=== PATIENT | female | born 1960 | race Caucasian/White ===

== ENCOUNTER 2017-03-23 21:06 | Emergency (ER) | payer OTHER ==
[~2017-03-23] VITALS: Ht 162.6 cm; Wt 60.3 kg
[~2017-03-23 21:06] MED LIST: AMT50 PO; BUPR150T47 PO; DIPH-416 PO; FLUO20CA35 PO; HYOS0.1271 PO; SUMA100T15 PO; TOPI100T20 PO
[2017-03-23 21:12] VITALS: TEMP 36.5; Ht 162.6 cm; Wt 60.3 kg
[2017-03-23] MEDS ORDERED: LEVO25TA PO (21:34)
[2017-03-23] MEDS ORDERED: NARA1TAB4 PO (21:34)
[2017-03-23] MEDS ORDERED: BUTA1CAP17 PO (21:34)
[2017-03-23] MEDS ORDERED: AMOXICILLIN/CLAVULANATE TAB 875 MG TAB PO ONE (21:45)
[2017-03-23] MEDS ORDERED: RABIES VACCINE (IMOVAX) HUMAN DIPL CELL 2.5 INTER.UNIT/ML SYR IM. ONE (21:45)
[2017-03-23] MEDS ORDERED: RABIES IMMUNE GLOBULIN (HUMAN) 150 INTER.UNIT/ML 2 ML VIAL IM. ONE (21:45)
[2017-03-23] MEDS ORDERED: DIPHTHERIA/TETANUS/PERTUSSIS 0.5 ML SYR/VIAL IM. ONE (21:45)
[2017-03-23] MEDS ORDERED: AMOX875T PO (22:01)
--- NOTE | 2017-03-23 22:03 | EMERGENCY ROOM VISIT NOTE ---
History First contact with patient: 21:16 Chief Complaint: BITE Stated Complaint: CAT BITE LEFT FOREARM History of Present Illness The patient is a 56 year old female who presents to the Emergency Room with complaints of a cat bite from a feral cat that occurred prior to arrival. The patient rescues feral cats. She noticed that this cat was appearing very ill and lethargic. She tried to catch the cat when it bit her on the left forearm. She is unsure of her last tetanus shot. She took the cat to the vet. It Was diagnosed with kidney failure. It was euthanized. It is being sent away for testing including rabies. The patient denies any significant pain from the wound. No fever or chills. Review of Systems 6 system review negative. Please see pertinent positives in the history of present illness section. Past Medical/Surgical History Hypothyroidism Social History Smoking Status: Never Smoker Current/Historical Medications Scheduled Amitriptyline Hcl (Elavil), 25 MG PO HS Amoxicillin & Pot Clavulanate (Augmentin 875-125 mg), 1 TAB PO BID Bupropion (Zyban), 150 MG PO HS Ypmucurkbn-Xtaydmryvwjgu-Voqaa (Fioricet), 1 CAP PO DIRECTED Fluoxetine (Prozac), 20 MG PO HS Levothyroxine Sodium (Synthroid), Unknown Dose PO DAILY Naratriptan Hcl (Amerge), Unknown Dose PO DIRECTED Scheduled PRN Hyoscyamine Sulfate (Hyoscyamine Sulfate), 1 TAB PO Q6H PRN for Diarrhea Allergies Coded Allergies: No Known Allergies (Unverified , 08/02/13) Physical Exam Vital Signs Date Time Temp Pulse Resp B/P (MAP) Pulse Ox O2 Delivery O2 Flow Rate FiO2 03/23/17 22:31 72 18 138/86 100 Room Air 03/23/17 21:12 36.5 64 18 147/94 99 Room Air Physical Exam VITALS: Vitals are noted on the nurse's note and reviewed by myself. Vital signs stable. GENERAL: 56-year-old female, in no acute distress, nondiaphoretic, well- developed well-nourished. SKIN: 2 puncture wounds are noted on the volar aspect of the left forearm. Mild erythema around the area. No erythematous streaking up the arm. No active bleeding.. HEAD: Normocephalic atraumatic. MUSCULOSKELETAL: Full flexion and extension of the left wrist. Strength 5/5 throughout. NEURO: Patient was alert and oriented to person place and time. Normal sensation to touch. No focal neurological deficits. Medical Decision & Procedures Medications Administered Medications (Trade) Dose Ordered Sig/Hever Route Start Time Stop Time Status Last Admin Dose Admin Amoxicillin/ Clavulanate Potassium (Augmentin Tab) 875 mg NOW ONCE PO 03/23/17 21:45 03/23/17 21:46 DC 03/23/17 21:58 875 MG Rabies Vaccine Human Diploid Cell (Imovax Rabies) 2.5 interunit ONCE ONCE IM. 03/23/17 21:45 03/23/17 21:46 DC 03/23/17 22:01 2.5 INTERUNIT Rabies Immune Globulin (Imogam Rabies Inj) 1,200 interunit ONCE ONCE IM. 03/23/17 21:45 03/23/17 21:46 DC 03/23/17 22:03 1,200 INTERUNIT Diphtheria/ Pertussis/Tetanus Vacc (Adacel Inj) 0.5 ml ONCE ONCE IM. 03/23/17 21:45 03/23/17 21:46 DC 03/23/17 22:00 0.5 ML ED Course The patient was seen and examined She was given 1 dose of Augmentin The case was discussed with [facility]. They informed me that the results of the rabies testing on the animal will likely be back in 3 days. The patient was given the rabies immunoglobulin She was also given RabAvert vaccine She was given an Adacel vaccine She was given 1 dose of Augmentin The wound was thoroughly cleansed. Approximately 1 mL of the rabies immunoglobulin was injected into the wound. It was dressed with bacitracin and a Band-Aid. Medical Decision Differential diagnosis Bite, wound infection, rabies exposure This patient is an unfortunate 56-year-old female that was bitten by a feral cat that appeared ill. The cat was euthanized and will be sent off for rabies testing. The testing will not be back for approximately 72 hours. For this reason, the patient was given the rabies immunoglobulin and the first rabies vaccine. She was also started on Augmentin. The wounds were thoroughly cleansed. I instructed her to call [facility] prior to returning to the emergency department for her next vaccine. If the testing is negative, she does not need any further vaccines. She was instructed to finish the entire course of antibiotics and wash the wound daily with soap and water. Impression Primary Impression: Cat bite Departure Information Dispostion Home / Self-Care Condition GOOD Prescriptions Amoxicillin & Pot Clavulanate (Augmentin 875-125 mg) 1 Tab Tab 1 TAB PO BID for 5 Days, #10 TAB Prov: Megan Snyder PA-C 03/23/17 Referrals Jennifer Addison M.D. (PCP) Patient Instructions ED Bite Cat, [facility], Rabies Vaccine suspension for injection Additional Instructions You had been treated in the emergency department for a cat bite. Please wash the wound daily with soap and water. Apply bacitracin for the first 2 days. Please watch for signs of infection such as redness, swelling, red streaking up the arm, significant pain or fever Please contact [facility] prior to returning to the emergency department for your next vaccination Today is day 0. Return to the ER on days 3, 7 and 14 for subsequent vaccinations.
[2017-03-23 22:31] VITALS: BP 138/86; PULSE 72; O2SAT 100
== END 2017-03-23 22:42 | disposition home or self-care (01) ==
LOC: C.EDB 21:09 → C.EDD 22:42
DX: S51.852A Open bite of left forearm, initial encounter (principal); W55.01XA Bitten by cat, initial encounter; Z23 Encounter for immunization; Z20.3 Contact with and (suspected) exposure to rabies; E03.9 Hypothyroidism, unspecified; Z79.899 Other long term (current) drug therapy

== ENCOUNTER → 2017-04-28 | Outpatient (CLI) | payer OTHER ==
[~2017-04-28] MED LIST changes: +BUTA1CAP17 PO; -DIPH-416 PO; +LEVO25TA PO; +NARA1TAB4 PO; -SUMA100T15 PO; -TOPI100T20 PO
[2017-04-28 13:29] LABS: BLOOD UREA NITROGEN 5 mg/dl (7-18); BUN/CREATININE RATIO 8.1 (10-20); CALCIUM 8.5 mg/dl (8.5-10.1); CARBON DIOXIDE 31 mmol/L (21-32); CHLORIDE 103 mmol/L (98-107); CREATININE 0.64 mg/dl (0.60-1.20); GLUCOSE 66 mg/dl (70-99); POTASSIUM 3.8 mmol/L (3.5-5.1); SODIUM 137 mmol/L (136-145)
== END | disposition home or self-care (01) ==
LOC: C.LABPVFM 08:35
PROVIDERS: ATTEND Family Medicine
DX: E03.9 Hypothyroidism, unspecified (principal); E55.9 Vitamin D deficiency, unspecified

== ENCOUNTER → 2017-09-04 | Outpatient (CLI) | payer OTHER ==
--- NOTE | 2017-09-05 12:52 | MAMMOGRAPHY REPORT ---
BILATERAL DIGITAL SCREENING MAMMOGRAM TOMOSYNTHESIS WITH CAD: 09/04/2017 CLINICAL HISTORY: Routine screening. Patient has no complaints. TECHNIQUE: Breast tomosynthesis in addition to standard 2D mammography was performed. Current study was also evaluated with a Computer Aided Detection (CAD) system. COMPARISON: Comparison is made to exams dated: 08/28/2016 mammogram, 08/08/2015 mammogram, 07/29/2014 mammogram, 07/31/2011 mammogram, 05/30/2010 mammogram - [facility], and 05/04/2009. BREAST COMPOSITION: The tissue of both breasts is heterogeneously dense, which may obscure small mas ses. FINDINGS: No suspicious masses, calcifications, or areas of architectural distortion are noted in ei ther breast. There has been no significant interval change compared to prior exams. IMPRESSION: ACR BI-RADS CATEGORY 1: NEGATIVE There is no mammographic evidence of malignancy. A 1 year screening mammogram is recommended. The pa tient will receive written notification of the results. Approximately 10% of breast cancers are not detected with mammography. A negative mammographic report should not delay biopsy if a clinically suggestive mass is present. Lyndsey Delong M.D. ah/:09/04/2017 14:50:04 Presser Cotton Ginning: Tabatha KENNEDY(Michelle)(Mohinder), [facility] letter sent: Normal 1/2 BI-RADS Code: ACR BI-RADS Category 1: Negative
== END | disposition home or self-care (01) ==
LOC: C.MAMM 09:14
PROVIDERS: ATTEND Family Medicine
DX: Z12.31 Encounter for screening mammogram for malignant neoplasm of breast (principal)

== ENCOUNTER → 2017-09-25 | Outpatient (CLI) | payer OTHER | END | disposition home or self-care (01) | LOC: C.LABPVFM 09:05 | PROVIDERS: ATTEND Nurse Practitioner | DX: N89.8 Other specified noninflammatory disorders of vagina (principal) ==

== ENCOUNTER → 2017-12-25 | Outpatient (CLI) | payer OTHER | END | disposition home or self-care (01) | LOC: C.LABPVFM 10:17 | PROVIDERS: ATTEND Nurse Practitioner | DX: N89.8 Other specified noninflammatory disorders of vagina (principal); E03.9 Hypothyroidism, unspecified ==

== ENCOUNTER → 2018-03-30 | Outpatient (CLI) | payer OTHER ==
--- NOTE | 2018-03-30 12:30 | DIAGNOSTIC IMAGING REPORT ---
L-SPINE MIN 4 VIEWS ROUTINE, THORACIC SPINE 3 VIEWS ROUTINE HISTORY: 57 years-old Female Paresthesias acute bilateral lower extremity numbness COMPARISON: CT abdomen and pelvis 08/21/2010 TECHNIQUE: 5 views of the lumbar spine with 3 views of the thoracic spine FINDINGS: LUMBAR: 5 nonrib-bearing lumbar type vertebral segments. No spondylolysis or spondylolisthesis. Mild intervertebral disc space narrowing with spondylitic spurring at 2-L3. No acute fracture, subluxation or other degenerative changes identified. There is straightening of the normal lumbar lordosis. Moderate volume of formed colonic stool seen about the right hemicolon. Mild atherosclerosis of the abdominal aorta. THORACIC: T1 is not completely imaged on the AP view. There are 12 rib-bearing thoracic-type vertebral segments. No acute fracture or subluxation. Mild convex right curvature of the midthoracic spine may be positional. Mild multilevel spondylitic spurring with minimal intervertebral disc space narrowing. No acute fracture or subluxation. Degenerative changes about the cervical spine noted. Imaged lung tanner appear clear. IMPRESSION: 1. No acute fracture or subluxation of the thoracic or lumbar spine. 2. Mild degenerative changes as above. The above report was generated using voice recognition software. It may contain grammatical, syntax or spelling errors. Electronically signed by: Sharif Hu M.D. 03/30/2018 12:28 PM Dictated Date/Time: 03/30/2018 12:22 PM
--- NOTE | 2018-03-30 13:15 | DIAGNOSTIC IMAGING REPORT ---
CERVICAL SPINE 2 OR 3 VIEWS CLINICAL HISTORY: Paresthesias. COMPARISON STUDY: No previous studies for comparison. FINDINGS: There is slight retrolisthesis of C4 on C5. Straightening of the normal cervical lordosis is noted. No fracture or suspicious lesion. There is moderate multilevel disc space narrowing at C4-5, C5-C6, C6-C7 and C7-T1. There is mild multilevel facet arthrosis. IMPRESSION: 1. No acute cervical spine fracture or subluxation. 2. Moderate to severe degenerative disc disease at C4-C5 with moderate disc space narrowing at numerous additional levels. 3. Mild multilevel facet arthrosis. Electronically signed by: Pedrito Peña M.D. 03/30/2018 1:14 PM Dictated Date/Time: 03/30/2018 1:08 PM
[2018-03-30 17:43] LABS: BASO % 0.3 %; BASO ABS # 0.02 K/uL (0-0.2); EOS ABS # 0.13 K/uL (0-0.5); HEMATOCRIT 39.3 % (37-47); HEMOGLOBIN 13.3 g/dL (12.0-16.0); IG# 0.02 K/uL (0.00-0.02); LYMPH % 26.3 %; LYMPH ABS # 1.67 K/uL (1.2-3.4); MEAN CELL VOLUME 89.1 fL (80-100); MEAN CORPUSCULAR HEMOGLOBIN 30.2 pg (25-34); MEAN CORPUSCULAR HGB CONC 33.8 g/dl (32-36); MEAN PLATELET VOLUME 10.5 fL (7.4-10.4); MONO % 6.8 %; MONO ABS # 0.43 K/uL (0.11-0.59); NEUT % 64.3 %; NEUT ABS # 4.08 K/uL (1.4-6.5); PLATELET COUNT 285 K/uL (130-400); RED CELL DISTRIBUTION WIDTH CV 13.1 % (11.5-14.5); RED CELL DISTRIBUTION WIDTH SD 42.8 fL (36.4-46.3); WHITE BLOOD COUNT 6.35 K/uL (4.8-10.8)
[2018-03-30 18:11] LABS: ALBUMIN 3.8 gm/dl (3.4-5.0); ALKALINE PHOSPHATASE 90 U/L (45-117); ALT/SGPT 20 U/L (12-78); AST/SGOT 15 U/L (15-37); BLOOD UREA NITROGEN 7 mg/dl (7-18); CALCIUM 8.7 mg/dl (8.5-10.1); CARBON DIOXIDE 31 mmol/L (21-32); CREATININE 0.66 mg/dl (0.60-1.20); GLUCOSE 68 mg/dl (70-99); POTASSIUM 3.8 mmol/L (3.5-5.1); SODIUM 138 mmol/L (136-145); TOTAL PROTEIN 7.3 gm/dl (6.4-8.2)
== END | disposition home or self-care (01) ==
LOC: C.RADPV 11:50
PROVIDERS: ATTEND Family Medicine
DX: R20.2 Paresthesia of skin (principal)